=== PATIENT | female | born 1970 | race Caucasian/White ===

== ENCOUNTER → 2016-12-08 | Outpatient (CLI) | payer BC, OTHER ==
--- NOTE | ~2016-12-08 | 24HR ---
[facility] [place] [address] 24 HR ELECTROCARDIOGRAM REPORT Name: KERON HOROWITZ Room #: REG CL [facility]#: [id number] Admission: 12/08/16 Attend Phys: Soto Magallon MD Discharge: Date of : 68 Date of Service: 12/08/16 1135 Report #: [id number] THIS REPORT FOR: //name// [facility] Test Date: 2016-12-08 Test Time: 11:35:00 Pat Name: KERON HOROWITZ Department: Room: Gender: [place] P[employer]: : 1970 Requested By: Soto Magallon Order Number: [id number] Reading MD: Rich Barrios Interpretive Statements 1. The study duration was 24 hours and the technical quality was good. 2. Predominant rhythm sinus with an average heart rate of 105 bpm, range 62-156 bpm. Longest RR interval 1.1 seconds 3. Rare, isolated atrial premature complexes. No atrial fibrillation or atrial flutter. No PSVT. No heart block. 4. Three isolated premature ventricular complexes during the monitoring period. No ventricular tachycardia. 5. No symptoms reported Electronically Signed On 12-10-2016 8:27:56 CDT by Rich Barrios [email or web address] <ELECTRONICALLY SIGNED> By: Rich Barrios MD, FAC 12/10/16 0827 1135 1135 Rich Barrios MD, FAC /EPI
== END ==
LOC: CV 10:43
DX: I47.1 Supraventricular tachycardia (principal)